=== PATIENT | female | born 1940 | race Caucasian/White ===

== ENCOUNTER 2018-05-10 10:04 | Emergency (ER) | payer MEDICARE, OTHER ==
[~2018-05-10 10:04] MED LIST: AUD IH; CHOL100040 PO; CYAN50LO PO; ESOM40CA PO; FLUTICA; FOLI1TAB82 PO; LEVAHFA IH; LEVO100T12 PO; LEVO150T11 PO; MONT10TA21 PO; PRAV20TA4 PO; TELM1TAB2 PO
[2018-05-10] MEDS ORDERED: ORPHENADRINE CITRATE 30 MG/ML ML ONE (10:43)
== END 2018-05-10 11:38 | disposition home or self-care (01) ==
LOC: EDH 10:04
DX: M47.892 Other spondylosis, cervical region (principal); M62.838 Other muscle spasm; E11.9 Type 2 diabetes mellitus without complications; I10 Essential (primary) hypertension; J44.9 Chronic obstructive pulmonary disease, unspecified; Z90.710 Acquired absence of both cervix and uterus; Z98.890 Other specified postprocedural states
CPT/HCPCS: 72040; 96372; 99284; J2360

== ENCOUNTER 2018-09-03 09:23 | Inpatient (IN) | payer MEDICARE, OTHER ==
[2018-09-03 09:43] LABS: BASOPHILS % (AUTO) 0.5 % (0.0-5.0); EOSINOPHILS % (AUTO) 2.8 % (0.0-8.0); LYMPHOCYTES % (AUTO) 20.8 % (21.0-51.0); MEAN CORPUSCULAR HEMOGLOBIN 30.7 pg (27.0-33.0); MEAN CORPUSCULAR HGB CONC 34.3 g/dL (32.0-36.0); MEAN CORPUSCULAR VOLUME 89.6 fL (79-99); NEUTROPHILS % (AUTO) 65.9 % (40.0-77.0); NUCLEATED RED BLOOD CELLS 0.1 % (0.0-0.19); PLATELET COUNT (AUTO) 217 K/uL (130-400); RED BLOOD CELL COUNT(AUTO) 3.13 MIL/uL (4.00-5.50); RED CELL DISTRIBUTION WIDTH 13.3 % (11.0-15.5); WHITE BLOOD COUNT (AUTO) 6.6 K/uL (4.8-10.8)
[2018-09-03 09:48] LABS: CREATININE 1.8 mg/dL (0.5-1.5); POTASSIUM 4.3 mmol/L (3.5-5.1)
[2018-09-03] MEDS ORDERED: ASPIRIN 325 MG TABLET ONE (09:53)
[2018-09-03 09:54] LABS: INR 1.02 (0.85-1.15); PARTIAL THROMBOPLASTIN TIME 28.2 SEC (26.3-35.5); PROTHROMBIN TIME 10.7 SEC (9.6-11.6)
[2018-09-03] MEDS ORDERED: NITROGLYCERIN 1GM/1 INCH PACKET TD ONE (09:54)
[2018-09-03 09:58] LABS: ALBUMIN 3.8 g/dL (3.5-5.0); BILIRUBIN,TOTAL 0.6 mg/dL (0.2-1.0); TOTAL PROTEIN, SERUM 7.7 g/dL (6.0-8.3)
[2018-09-03] MEDS ORDERED: ACETAMINOPHEN 325 MG TAB PO PRN (12:00)
[2018-09-03] MEDS ORDERED: ONDANSETRON HCL 4 MG/2 ML VIAL IVP PRN (12:00)
[2018-09-03] MEDS ORDERED: LEVO50TA11 PO (13:29)
[2018-09-03] MEDS ORDERED: LEVO50 PO (13:29)
[2018-09-03] MEDS ORDERED: TELM1TAB34 PO (13:29)
[2018-09-03] MEDS ORDERED: CLOP75TA32 PO (13:29)
[2018-09-03] MEDS ORDERED: CALC600T12 PO (13:29)
[2018-09-03] MEDS ORDERED: [UNRECOGNIZED DRUG - OTHER] PO (13:29)
[2018-09-03 15:09] LABS: APPEARANCE,URINE Clear (CLEAR); BILIRUBIN,URINE Negative (NEGATIVE); COLOR,URINE Yellow (YELLOW); GLUCOSE, URINE (UA) Negative (NEGATIVE); KETONES,URINE Negative (NEGATIVE); LEUKOCYTE ESTERASE ,URINE Moderate (NEGATIVE); NITRATE,URINE Negative (NEGATIVE); OCCULT BLOOD,URINE Negative (NEGATIVE); PROTEIN,URINE Negative (NEGATIVE); UROBILINOGEN,URINE 0.2 mg/dL (0.2-1.0)
[2018-09-03 15:16] LABS: BACTERIA,URINE Rare /HPF (None Seen); RBC,URINE 0-1 /HPF (0-1); SQUAMOUS EPITHELIAL CELL,UR Few /HPF (0-2)
[2018-09-03] MEDS: INSULIN R PO SS1 SQ SCH ×2 (16:30→21:00)
[2018-09-03 19:36] LABS: CREATINE KINASE, TOTAL 238 U/L (21-232); MYOGLOBIN 206 ng/mL (10-92); TROPONIN I < 0.04 ng/mL (0.00-0.06)
--- NOTE | 2018-09-03 20:45 | NUR ---
Patient arrived on unit. Alert and oriented x4. Nitro paste applied in ED. Denies headache or dizziness. Ambulated independently. No SOB with exertion or at rest. Patient denies chest pain. Patient resting comfortably. Family at bedside. Oriented to environment. Call light with in reach. Home Medications updated and ready for reconciliation.
[2018-09-03 21:30] VITALS: BP 148/88
[2018-09-03 23:53] VITALS: BP 129/51
[2018-09-04 04:16] LABS: CARBON DIOXIDE 27 mmol/L (21-32); CHLORIDE 104 mmol/L (101-111); CHOLESTEROL 149 mg/dL (<200); CREATINE KINASE, TOTAL 201 U/L (21-232); CREATININE 1.6 mg/dL (0.5-1.5); GLOMERULAR FILTR. RATE CALC 33 mL/min (>60); GLUCOSE,RANDOM 93 mg/dL (70-105); HDL CHOLESTEROL 44 mg/dL (35-85); HEMOGLOBIN A1C 6.1 % (4.0-6.0); LDL DIRECT 94 mg/dL (0-99); MYOGLOBIN 167 ng/mL (10-92); POTASSIUM 3.9 mmol/L (3.5-5.1); SODIUM SERUM 141 mmol/L (136-145); TRIGLYCERIDES 113 mg/dL (30-200); TROPONIN I < 0.04 ng/mL (0.00-0.06); UREA NITROGEN, BLOOD 30 mg/dL (7-18)
[2018-09-04] MEDS ORDERED: CARV25TA PO (04:24)
[2018-09-04 04:30] LABS: HEMATOCRIT 28.1 % (36-48); MEAN CORPUSCULAR HEMOGLOBIN 30.1 pg (27.0-33.0); MEAN CORPUSCULAR HGB CONC 33.7 g/dL (32.0-36.0); MEAN CORPUSCULAR VOLUME 89.2 fL (79-99); NUCLEATED RED BLOOD CELLS 0.1 % (0.0-0.19); PLATELET COUNT (AUTO) 187 K/uL (130-400); RED BLOOD CELL COUNT(AUTO) 3.15 MIL/uL (4.00-5.50); RED CELL DISTRIBUTION WIDTH 13.6 % (11.0-15.5); WHITE BLOOD COUNT (AUTO) 5.4 K/uL (4.8-10.8)
[2018-09-04 04:50] VITALS: BP 123/50
[2018-09-04] MEDS: INSULIN R PO SS1 SQ SCH ×4 (06:55→21:00)
[2018-09-04 07:00] VITALS: BP 136/57
[2018-09-04] MEDS ORDERED: ASPIRIN 81MG TAB.CHEW PO SCH (09:00)
[2018-09-04] MEDS ORDERED: PANTOPRAZOLE SODIUM 40 MG TABLET.DR PO SCH ×2 (09:00→21:00)
[2018-09-04] MEDS ORDERED: COMPOUND IV MISC 1 EACH IVSOLN MISC PRN (09:30)
[2018-09-04] MEDS ORDERED: LEVOTHYROXINE 50 MCG TABLET PO SCH (09:30)
[2018-09-04] MEDS ORDERED: ALBUTEROL SULFATE 0.083% 2.5 MG/3 ML INH IH PRN (09:45)
[2018-09-04] MEDS ORDERED: IRON SUCROSE COMPLEX 100 MG in SODIUM CHLORIDE 0.9% 50 ML IV SCH (09:45)
--- NOTE | 2018-09-04 10:37 | NUR ---
STATUS PT LAYING IN BED, RESTING. FAMILY @ BEDSIDE. A/O X 3. NO SOB. NO DISTRESS NOTED. DENIES CHEST PAIN OR DISCOMFORT. DENIES PALPITATIONS. TELE: SR 60s. DENIES N/V AND/OR DIARRHEA. NPO STATUS REINFORCED. PT PENDING TO HAVE FILIPE SCAN TO BE DONE TODAY. INSTRUCTED TO CALL FOR ASSISTANCE. CALL TIFFANIE W/IN REACH.
[2018-09-04 11:00] VITALS: BP 155/77
[2018-09-04] MEDS ORDERED: REGADENOSON 0.4 MG/5 ML PF SYG IVP SCH (11:15)
--- NOTE | 2018-09-04 13:50 | NUR ---
RITA PLAN PATIENT DOWN FOR PROCEDURE. CHRISTOPHER WILL FOLLOW UP FOR IA. Addendum: 09/04/18 at 1350 by FELISA CHOWDHURY RN CM Amended: Links added.
[2018-09-04 16:00] VITALS: BP 140/65
--- NOTE | 2018-09-04 16:43 | NUR ---
DC PLAN VISITED WITH PATIENT. PATIENT LIVES WITH SPOUSE. INDEPENDENT ABLE TO PERFORM ADL'S. PATIENT HAS NO SERVICES OR DME'S. FEELS SAFE TO RETURN HOME. Addendum: 09/04/18 at 1645 by FELISA CHOWDHURY RN CM Amended: Links added.
[2018-09-04 19:54] VITALS: BP 147/61
[2018-09-04] MEDS ORDERED: MONTELUKAST SODIUM 10 MG TAB PO SCH (21:00)
[2018-09-04] MEDS ORDERED: CARVEDILOL 25 MG TABLET PO SCH (21:00)
[2018-09-04] MEDS ORDERED: ATORVASTATIN CALCIUM 10 MG TABLET PO SCH (21:00)
[2018-09-04] MEDS ORDERED: CALCIUM CARBONATE 500 MG TABLET PO SCH (21:00)
[2018-09-04 23:35] VITALS: BP 114/48
[2018-09-05 04:04] VITALS: BP 131/74
[2018-09-05] MEDS: INSULIN R PO SS1 SQ SCH (05:31)
--- NOTE | 2018-09-05 07:40 | NUR ---
ASSESSMENT ENCOUNTERED PT A&OX3, CALM COOPERATIVE AND DOES NOT APPEAR TO BE IN ANY DISTRESS NOR ANY NEURO DEFICITS PRESENT. PT DENIES PAIN, SOB, NAUSEA. PT IS AMBULATORY, GAIT STEADY AND STRONG WITH STAND BY ASSIST. CALL LIGHT WITHIN REACH, FAMILY AT BEDSIDE.
[2018-09-05 07:41] VITALS: BP 120/62
[2018-09-05] MEDS ORDERED: CLOPIDOGREL BISULFATE 75 MG TAB PO SCH (09:00)
[2018-09-05] MEDS ORDERED: FOLIC ACID/VITAMIN B COMP W-C 1 MG CAPSULE PO SCH (09:00)
--- NOTE | 2018-09-05 09:00 | NUR ---
DR Najma MONTENEGRO AT BEDSIDE UPDATE GIVEN, ORDERS RECEIVED.
--- NOTE | 2018-09-05 10:00 | NUR ---
DISCHARGE INSTRUCTIONS GIVEN, PIV REMOVED AND INTACT, DISCHARGED HOME TO FAMILY VEHICLE VIA WHEELCHAIR.
== END 2018-09-05 09:56 | disposition home or self-care (01) | DRG 303 ==
LOC: EDH 09:23 → EDHIP 11:11 → 2AH 20:46
PROVIDERS: ADMIT Internal Medicine Nephrology; ATTEND Internal Medicine Nephrology
DX: I25.110 Atherosclerotic heart disease of native coronary artery with unstable angina pectoris (principal); N18.4 Chronic kidney disease, stage 4 (severe); I12.9 Hypertensive chronic kidney disease with stage 1 through stage 4 chronic kidney disease, or unspecified chronic kidney disease; E11.21 Type 2 diabetes mellitus with diabetic nephropathy; E11.22 Type 2 diabetes mellitus with diabetic chronic kidney disease; E78.5 Hyperlipidemia, unspecified; I99.9 Unspecified disorder of circulatory system; E78.00 Pure hypercholesterolemia, unspecified; J44.9 Chronic obstructive pulmonary disease, unspecified; Z90.710 Acquired absence of both cervix and uterus
CPT/HCPCS: 36415; 71045; 78452; 80048; 80053; 80061; 81001; 82550; 82948; 83036; 83874; 84484; 85025; 85027; 85610; 85730; 93005; 93017; 94664; 96374; 99291; A9500; G0378; J1756; J2785

== ENCOUNTER → 2018-12-26 | Outpatient (CLI) | payer MEDICARE, OTHER ==
[~2018-12-26] MED LIST changes: +CALC600T12 PO; +CARV25TA PO; +CLOP75TA32 PO; -FLUTICA; -LEVAHFA IH; -LEVO100T12 PO; -LEVO150T11 PO; +LEVO50 PO; -TELM1TAB2 PO; +TELM1TAB34 PO; +[UNRECOGNIZED DRUG - OTHER] PO
== END | disposition home or self-care (01) ==
LOC: RAH 11:50
PROVIDERS: ATTEND Internal Medicine Nephrology
DX: Z12.31 Encounter for screening mammogram for malignant neoplasm of breast (principal)
CPT/HCPCS: 77067

== ENCOUNTER 2019-10-19 10:30 | Emergency (ER) | payer MEDICARE, OTHER ==
[2019-10-19 11:01] LABS: APPEARANCE,URINE Cloudy (CLEAR); BILIRUBIN,URINE Negative (NEGATIVE); COLOR,URINE Yellow (YELLOW); GLUCOSE, URINE (UA) Negative (NEGATIVE); KETONES,URINE Negative (NEGATIVE); LEUKOCYTE ESTERASE ,URINE Large (NEGATIVE); NITRATE,URINE Negative (NEGATIVE); OCCULT BLOOD,URINE Negative (NEGATIVE); PROTEIN,URINE Negative (NEGATIVE); UROBILINOGEN,URINE 0.2 mg/dL (0.2-1.0)
[2019-10-19 11:22] LABS: BACTERIA,URINE Rare /HPF (None Seen); RBC,URINE 0-1 /HPF (0-1); SQUAMOUS EPITHELIAL CELL,UR Few /HPF (0-2)
[2019-10-19 11:23] LABS: BASOPHILS % (AUTO) 0.9 % (0.0-5.0); EOSINOPHILS % (AUTO) 2.5 % (0.0-8.0); HEMATOCRIT 28.2 % (36-48); MEAN CORPUSCULAR HEMOGLOBIN 30.2 pg (27.0-33.0); MEAN CORPUSCULAR HGB CONC 33.3 g/dL (32.0-36.0); MEAN CORPUSCULAR VOLUME 90.7 fL (79-99); MONOCYTES % (AUTO) 8.9 % (3.0-13.0); NEUTROPHILS % (AUTO) 62.2 % (40.0-77.0); PLATELET COUNT (AUTO) 238 K/uL (130-400); RED BLOOD CELL COUNT(AUTO) 3.11 MIL/uL (4.00-5.50); RED CELL DISTRIBUTION WIDTH 13.1 % (11.0-15.5); WHITE BLOOD COUNT (AUTO) 5.6 K/uL (4.8-10.8)
[2019-10-19] MEDS ORDERED: CEFTRIAXONE SODIUM 1 GM ONE (11:29)
[2019-10-19] MEDS ORDERED: SODIUM CHLORIDE 0.9% 1000ML 1,000 ML IV ONE (11:29)
[2019-10-19 11:30] LABS: CREATININE 1.9 mg/dL (0.5-1.5); POTASSIUM 4.5 mmol/L (3.5-5.1)
[2019-10-19 11:33] LABS: INR 0.98 (0.85-1.15); PARTIAL THROMBOPLASTIN TIME 27.1 SEC (26.3-35.5); PROTHROMBIN TIME 10.3 SEC (9.6-11.6)
[2019-10-19 11:35] LABS: ALBUMIN 3.7 g/dL (3.5-5.0); BILIRUBIN,TOTAL 0.5 mg/dL (0.2-1.0); TOTAL PROTEIN, SERUM 7.8 g/dL (6.0-8.3)
[2019-10-19 11:38] LABS: RAPID GROUP A STREP NEGATIVE (NEGATIVE)
== END 2019-10-19 14:06 | disposition home or self-care (01) ==
LOC: EDH 10:30
DX: N30.00 Acute cystitis without hematuria (principal); D64.9 Anemia, unspecified; J44.9 Chronic obstructive pulmonary disease, unspecified; E11.9 Type 2 diabetes mellitus without complications; I10 Essential (primary) hypertension; Z90.49 Acquired absence of other specified parts of digestive tract; Z90.710 Acquired absence of both cervix and uterus
CPT/HCPCS: 36415; 71045; 80053; 81001; 82550; 82948; 83880; 84484; 85025; 85610; 85730; 87088; 87804 ×2; 87880; 93005; 96374; 99285; J0696; J7030

== ENCOUNTER 2019-10-28 09:55 | Emergency (ER) | payer MEDICARE, OTHER ==
[2019-10-28 10:44] LABS: APPEARANCE,URINE Clear (CLEAR); BILIRUBIN,URINE Negative (NEGATIVE); COLOR,URINE Yellow (YELLOW); GLUCOSE, URINE (UA) Negative (NEGATIVE); KETONES,URINE Negative (NEGATIVE); LEUKOCYTE ESTERASE ,URINE Moderate (NEGATIVE); NITRATE,URINE Negative (NEGATIVE); OCCULT BLOOD,URINE Negative (NEGATIVE); PROTEIN,URINE Negative (NEGATIVE); UROBILINOGEN,URINE 0.2 mg/dL (0.2-1.0)
[2019-10-28 10:44] LABS: BASOPHILS % (AUTO) 1.1 % (0.0-5.0); EOSINOPHILS % (AUTO) 1.9 % (0.0-8.0); HEMATOCRIT 30.4 % (36-48); LYMPHOCYTES % (AUTO) 24.8 % (21.0-51.0); MEAN CORPUSCULAR HEMOGLOBIN 30.2 pg (27.0-33.0); MEAN CORPUSCULAR HGB CONC 32.9 g/dL (32.0-36.0); MEAN CORPUSCULAR VOLUME 91.8 fL (79-99); MONOCYTES % (AUTO) 7.9 % (3.0-13.0); NEUTROPHILS % (AUTO) 63.9 % (40.0-77.0); PLATELET COUNT (AUTO) 257 K/uL (130-400); RED BLOOD CELL COUNT(AUTO) 3.31 MIL/uL (4.00-5.50); RED CELL DISTRIBUTION WIDTH 13.1 % (11.0-15.5); WHITE BLOOD COUNT (AUTO) 7.2 K/uL (4.8-10.8)
[2019-10-28 10:51] LABS: CREATININE 1.9 mg/dL (0.5-1.5); POTASSIUM 4.5 mmol/L (3.5-5.1)
[2019-10-28 10:57] LABS: BILIRUBIN,TOTAL 0.4 mg/dL (0.2-1.0); TOTAL PROTEIN, SERUM 8.2 g/dL (6.0-8.3)
[2019-10-28 11:09] LABS: BACTERIA,URINE Few /HPF (None Seen); RBC,URINE None Seen /HPF (0-1); RENAL EPITHELIAL CELLS,URINE Few /HPF (None Seen); SQUAMOUS EPITHELIAL CELL,UR Few /HPF (0-2)
== END 2019-10-28 12:06 | disposition home or self-care (01) ==
LOC: EDH 09:55
DX: E87.1 Hypo-osmolality and hyponatremia (principal); N39.0 Urinary tract infection, site not specified; I10 Essential (primary) hypertension; J44.9 Chronic obstructive pulmonary disease, unspecified; E11.9 Type 2 diabetes mellitus without complications; Z90.49 Acquired absence of other specified parts of digestive tract; Z90.710 Acquired absence of both cervix and uterus
CPT/HCPCS: 36415; 80053; 81001; 82550; 84484; 85025; 87088; 93005

== ENCOUNTER 2019-12-02 11:25 | Emergency (ER) | payer MEDICARE, OTHER ==
[2019-12-02] MEDS ORDERED: ONDANSETRON HCL 4 MG/2 ML VIAL ONE (12:18)
[2019-12-02 12:19] LABS: EOSINOPHILS % (AUTO) 1.8 % (0.0-8.0); HEMATOCRIT 25.9 % (36-48); MEAN CORPUSCULAR HEMOGLOBIN 31.3 pg (27.0-33.0); MEAN CORPUSCULAR HGB CONC 34.4 g/dL (32.0-36.0); MEAN CORPUSCULAR VOLUME 91.2 fL (79-99); MONOCYTES % (AUTO) 12.7 % (3.0-13.0); PLATELET COUNT (AUTO) 213 K/uL (130-400); RED BLOOD CELL COUNT(AUTO) 2.84 MIL/uL (4.00-5.50); RED CELL DISTRIBUTION WIDTH 12.7 % (11.0-15.5)
[2019-12-02 12:32] LABS: APPEARANCE,URINE CLOUDY (CLEAR); BILIRUBIN,URINE NEGATIVE (NEGATIVE); COLOR,URINE YELLOW (YELLOW); GLUCOSE, URINE (UA) NEGATIVE (NEGATIVE); KETONES,URINE NEGATIVE (NEGATIVE); LEUKOCYTE ESTERASE ,URINE LARGE (NEGATIVE); NITRATE,URINE NEGATIVE (NEGATIVE); OCCULT BLOOD,URINE NEGATIVE (NEGATIVE); PROTEIN,URINE NEGATIVE (NEGATIVE); UROBILINOGEN,URINE 0.2 mg/dL (0.2-1.0)
[2019-12-02 12:38] LABS: POTASSIUM 4.3 mmol/L (3.5-5.1)
[2019-12-02 12:41] LABS: ALBUMIN 3.6 g/dL (3.5-5.0); BILIRUBIN,TOTAL 0.5 mg/dL (0.2-1.0); TOTAL PROTEIN, SERUM 6.9 g/dL (6.0-8.3)
[2019-12-02 12:47] LABS: BACTERIA,URINE Many /HPF (None Seen); RBC,URINE 0-1 /HPF (0-1); SQUAMOUS EPITHELIAL CELL,UR Many /HPF (0-2); WBC,URINE 51-100 /HPF (0-1)
[2019-12-02] MEDS ORDERED: CEFTRIAXONE SODIUM 1 GM ONE (14:30)
== END 2019-12-02 19:32 | disposition home or self-care (01) ==
LOC: EDH 11:25
DX: N39.0 Urinary tract infection, site not specified (principal); M62.81 Muscle weakness (generalized); J44.9 Chronic obstructive pulmonary disease, unspecified; E11.9 Type 2 diabetes mellitus without complications; I10 Essential (primary) hypertension; Z87.891 Personal history of nicotine dependence
CPT/HCPCS: 36415; 71045; 78582; 80053; 81001; 84484; 85025; 85378; 87088; 93005; 96374; 96375; 99285; A9540; A9558; J0696; J2405

== ENCOUNTER 2020-10-26 15:53 | Emergency (ER) | payer MEDICARE, OTHER ==
[~2020-10-26 15:53] MED LIST changes: -CALC600T12 PO; +CALC600T15 PO; -TELM1TAB34 PO; +TELM1TAB42 PO
[2020-10-26 16:26] LABS: EOSINOPHILS % (AUTO) 2.3 % (0.0-8.0); HEMATOCRIT 30.5 % (36-48); LYMPHOCYTES % (AUTO) 18.4 % (21.0-51.0); MEAN CORPUSCULAR HEMOGLOBIN 29.2 pg (27.0-33.0); MEAN CORPUSCULAR HGB CONC 32.1 g/dL (32.0-36.0); MEAN CORPUSCULAR VOLUME 90.8 fL (79-99); MONOCYTES % (AUTO) 9.1 % (3.0-13.0); NEUTROPHILS % (AUTO) 68.8 % (40.0-77.0); PLATELET COUNT (AUTO) 273 K/uL (130-400); RED BLOOD CELL COUNT(AUTO) 3.36 MIL/uL (4.00-5.50); RED CELL DISTRIBUTION WIDTH 13.3 % (11.0-15.5); WHITE BLOOD COUNT (AUTO) 6.9 K/uL (4.8-10.8)
[2020-10-26 16:29] LABS: APPEARANCE,URINE Clear (CLEAR); BILIRUBIN,URINE Negative (NEGATIVE); COLOR,URINE Yellow (YELLOW); GLUCOSE, URINE (UA) Negative (NEGATIVE); KETONES,URINE Trace mg/dL (NEGATIVE); LEUKOCYTE ESTERASE ,URINE Trace (NEGATIVE); NITRATE,URINE Negative (NEGATIVE); OCCULT BLOOD,URINE Negative (NEGATIVE); PH,URINE 5.5 (5.0-8.0); PROTEIN,URINE Negative (NEGATIVE); UROBILINOGEN,URINE 0.2 mg/dL (0.2-1.0)
[2020-10-26] MEDS ORDERED: ONDANSETRON HCL 4 MG/2 ML VIAL ONE (16:38)
[2020-10-26] MEDS ORDERED: MORPHINE SULFATE 4 MG/1ML SYG ONE (16:38)
[2020-10-26] MEDS ORDERED: SODIUM CHLORIDE 0.9% 1000ML 1,000 ML IV ONE (16:39)
[2020-10-26 16:42] LABS: BACTERIA,URINE Few /HPF (None Seen); MUCUS,URINE Few LPF (None Seen); RBC,URINE 0-1 /HPF (0-1); SQUAMOUS EPITHELIAL CELL,UR Few /HPF (0-2)
[2020-10-26 16:43] LABS: ALBUMIN 3.8 g/dL (3.5-5.0); BILIRUBIN,TOTAL 0.5 mg/dL (0.2-1.0); CREATININE 1.8 mg/dL (0.5-1.5); POTASSIUM 4.4 mmol/L (3.5-5.1); TOTAL PROTEIN, SERUM 7.9 g/dL (6.0-8.3)
== END 2020-10-26 18:10 | disposition home or self-care (01) ==
LOC: EDH 15:53
DX: M62.830 Muscle spasm of back (principal); R53.1 Weakness; Z20.822 Contact with and (suspected) exposure to COVID-19; E11.9 Type 2 diabetes mellitus without complications; E86.0 Dehydration; I10 Essential (primary) hypertension; J44.9 Chronic obstructive pulmonary disease, unspecified; Z90.710 Acquired absence of both cervix and uterus; Z90.49 Acquired absence of other specified parts of digestive tract
CPT/HCPCS: 36415; 71046; 80053; 81001; 85025; 87426; 96361; 96374; 96375; 99284; J2270; J2405; J7030

== ENCOUNTER 2022-12-21 07:59 | Day surgery (SDC) | payer MEDICARE, OTHER ==
[2022-12-17 12:25] LABS: BASOPHILS % (AUTO) 0.9 % (0.0-5.0); EOSINOPHILS % (AUTO) 3.1 % (0.0-8.0); HEMATOCRIT 34.1 % (36-48); LYMPHOCYTES % (AUTO) 15.2 % (21.0-51.0); MEAN CORPUSCULAR HEMOGLOBIN 30.8 pg (27.0-33.0); MEAN CORPUSCULAR HGB CONC 33.7 g/dL (32.0-36.0); MEAN CORPUSCULAR VOLUME 91.4 fL (79-99); MONOCYTES % (AUTO) 10.1 % (3.0-13.0); NEUTROPHILS % (AUTO) 70.3 % (40.0-77.0); PLATELET COUNT (AUTO) 215 K/uL (130-400); RED BLOOD CELL COUNT(AUTO) 3.73 MIL/uL (4.00-5.50); RED CELL DISTRIBUTION WIDTH 12.8 % (11.0-15.5); WHITE BLOOD COUNT (AUTO) 7.4 K/uL (4.8-10.8)
[2022-12-17 12:43] VITALS: BP 109/53
[2022-12-17 12:43] LABS: ALBUMIN 3.5 g/dL (3.5-5.0); BILIRUBIN,DIRECT 0.1 mg/dL (0.0-0.3); POTASSIUM 5.2 mmol/L (3.5-5.1); TOTAL PROTEIN, SERUM 7.4 g/dL (6.0-8.3)
[2022-12-21] VITALS (17 sets, daily range): BP systolic 136–178; BP diastolic 68–99
[~2022-12-21] VITALS: Ht 167.6 cm; Wt 105.1 kg
[~2022-12-21 07:59] MED LIST changes: -AUD IH; -CALC600T15 PO; -CHOL100040 PO; -CYAN50LO PO; +FLUT1AER IH; +LEVO100C4 PO; -LEVO50 PO; +MONT-46 PO; -MONT10TA21 PO; -[UNRECOGNIZED DRUG - OTHER] PO; +calcium PO
[2022-12-21] MEDS ORDERED: CEFAZOLIN SODIUM 1 GM VIAL ONE (09:05)
[2022-12-21] MEDS ORDERED: LACTATED RINGERS 1000ML 1,000 ML IV ONE (09:05)
[2022-12-21 09:26] LABS: CREATININE 1.8 mg/dL (0.5-1.5); POTASSIUM 5.1 mmol/L (3.5-5.1)
[2022-12-21] MEDS ORDERED: CYAN1TAB44 PO (09:42)
[2022-12-21] MEDS ORDERED: GLYCOPYRROLATE 1 MG/5 ML SYRINGE ONE (11:20)
[2022-12-21] MEDS ORDERED: SUCCINYLCHOLINE CHLORIDE 20 MG/ML 10 ML VIAL ONE (11:20)
[2022-12-21] MEDS ORDERED: ONDANSETRON 4MG INJ ONE (11:20)
[2022-12-21] MEDS ORDERED: LIDOCAINE PF 100MG/5ML (2%) SYRINGE 5ML ONE (11:20)
[2022-12-21] MEDS ORDERED: MIDAZOLAM HCL 1 MG/ML 2ML VIAL ONE (11:20)
[2022-12-21] MEDS ORDERED: DEXAMETHASONE SOD PHOSPHATE 10MG/ML 1ML VIAL ONE (11:20)
[2022-12-21] MEDS ORDERED: ROCURONIUM 10MG/1ML SYR 10 MG/ML ML ONE (11:21)
[2022-12-21] MEDS ORDERED: PROPOFOL 10 MG/ML 20ML VIAL IV ONE (11:21)
[2022-12-21] MEDS ORDERED: FENTANYL CITRATE PF 50 MCG/1 ML 2ML VIAL ONE (11:21)
[2022-12-21] MEDS ORDERED: NEOSTIGMINE 5MG/5ML SYR IV ONE (11:21)
[2022-12-21] MEDS ORDERED: BUPIVACAINE/PF 0.5% 30ML VIAL ONE (11:25)
[2022-12-21] MEDS ORDERED: KETOROLAC 30MG VIAL (30MG/ML) ONE (11:53)
[2022-12-21] MEDS ORDERED: LIDOCAINE HCL-MPF 2% 10ML AMP IJ ONE (11:54)
[2022-12-21] MEDS ORDERED: SUGAMMADEX SODIUM 200 MG/2 ML VIAL IV ONE (11:55)
[2022-12-21] MEDS ORDERED: TRAM50TA4 PO (12:20)
== END 2022-12-21 13:33 | disposition home or self-care (01) ==
LOC: DAH 07:59
PROVIDERS: ATTEND Surgery
DX: L72.3 Sebaceous cyst (principal); Z20.822 Contact with and (suspected) exposure to COVID-19; I10 Essential (primary) hypertension; I25.10 Atherosclerotic heart disease of native coronary artery without angina pectoris; K21.9 Gastro-esophageal reflux disease without esophagitis; E03.9 Hypothyroidism, unspecified; J44.9 Chronic obstructive pulmonary disease, unspecified; E66.9 Obesity, unspecified; Z86.73 Personal history of transient ischemic attack (TIA), and cerebral infarction without residual deficits; Z91.040 Latex allergy status; Z88.0 Allergy status to penicillin; Z68.37 Body mass index [BMI] 37.0-37.9, adult
CPT/HCPCS: 80076; 80048 ×2; 85025; 87426; 36415 ×2; 93005; 11422; 88304; A6260; A4663; A4606; J7120; J3010; J0690; J3490 ×3; J1100; J2710; J0330; J2001; J2250; J2704; J2405; J1885; A4215; A4223; A4222; A4221; A4600

== ENCOUNTER 2023-02-27 10:19 | Emergency (ER) | payer MEDICARE, OTHER ==
[~2023-02-27] VITALS: Ht 170.2 cm; Wt 104.3 kg
[~2023-02-27 10:19] MED LIST changes: +CYAN1TAB44 PO
[2023-02-27 11:12] LABS: BASOPHILS % (AUTO) 1.2 % (0.0-5.0); EOSINOPHILS % (AUTO) 2.5 % (0.0-8.0); HEMATOCRIT 31.3 % (36-48); LYMPHOCYTES % (AUTO) 21.2 % (21.0-51.0); MEAN CORPUSCULAR HEMOGLOBIN 31.1 pg (27.0-33.0); MEAN CORPUSCULAR HGB CONC 33.9 g/dL (32.0-36.0); MEAN CORPUSCULAR VOLUME 91.8 fL (79-99); MONOCYTES % (AUTO) 7.4 % (3.0-13.0); NEUTROPHILS % (AUTO) 67.4 % (40.0-77.0); PLATELET COUNT (AUTO) 234 K/uL (130-400); RED BLOOD CELL COUNT(AUTO) 3.41 MIL/uL (4.00-5.50); RED CELL DISTRIBUTION WIDTH 13.3 % (11.0-15.5); WHITE BLOOD COUNT (AUTO) 7.5 K/uL (4.8-10.8)
[2023-02-27 11:21] LABS: POTASSIUM 4.4 mmol/L (3.5-5.1)
[2023-02-27 11:22] LABS: CREATININE 1.9 mg/dL (0.5-1.5)
[2023-02-27 11:26] LABS: ALBUMIN 3.6 g/dL (3.5-5.0); TOTAL PROTEIN, SERUM 7.6 g/dL (6.0-8.3)
[2023-02-27 13:22] LABS: BASOPHILS % (AUTO) 1.2 % (0.0-5.0); EOSINOPHILS % (AUTO) 2.5 % (0.0-8.0); HEMATOCRIT 31.8 % (36-48); LYMPHOCYTES % (AUTO) 23.2 % (21.0-51.0); MEAN CORPUSCULAR HEMOGLOBIN 31.2 pg (27.0-33.0); MEAN CORPUSCULAR VOLUME 91.9 fL (79-99); MONOCYTES % (AUTO) 6.3 % (3.0-13.0); NEUTROPHILS % (AUTO) 66.4 % (40.0-77.0); PLATELET COUNT (AUTO) 221 K/uL (130-400); RED BLOOD CELL COUNT(AUTO) 3.46 MIL/uL (4.00-5.50); RED CELL DISTRIBUTION WIDTH 13.4 % (11.0-15.5); WHITE BLOOD COUNT (AUTO) 7.6 K/uL (4.8-10.8)
[2023-02-27 14:42] VITALS: BP 154/70
[2023-03-02] MEDS ORDERED: ESCI-8 PO (12:18)
[2023-03-02] MEDS ORDERED: FERR-72 PO (12:18)
[2023-03-02] MEDS ORDERED: CHOL200013 PO (12:18)
[2023-03-02] MEDS ORDERED: TELM1TAB32 PO (12:18)
[2023-03-02] MEDS ORDERED: CELE-84 PO (12:18)
== END 2023-02-27 15:01 | disposition home or self-care (01) ==
LOC: EDH 10:19
DX: K62.5 Hemorrhage of anus and rectum (principal); D64.9 Anemia, unspecified; E87.1 Hypo-osmolality and hyponatremia; N28.9 Disorder of kidney and ureter, unspecified; I10 Essential (primary) hypertension; E66.9 Obesity, unspecified; Z68.36 Body mass index [BMI] 36.0-36.9, adult; E78.00 Pure hypercholesterolemia, unspecified; Z79.899 Other long term (current) drug therapy; Z87.440 Personal history of urinary (tract) infections; Z90.49 Acquired absence of other specified parts of digestive tract; Z90.710 Acquired absence of both cervix and uterus; Z98.890 Other specified postprocedural states; Z91.040 Latex allergy status
CPT/HCPCS: 36415; 80053; 82270; 85025

== ENCOUNTER 2023-03-06 16:25 | Emergency (ER) | payer MEDICARE, OTHER ==
[~2023-03-06] VITALS: Ht 170.2 cm; Wt 104.3 kg
[~2023-03-06 16:25] MED LIST changes: +CELE-84 PO; +CHOL200013 PO; -CLOP75TA32 PO; -CYAN1TAB44 PO; +ESCI-8 PO; -ESOM40CA PO; +FERR-72 PO; -FLUT1AER IH; -FOLI1TAB82 PO; -PRAV20TA4 PO; +TELM1TAB32 PO; -TELM1TAB42 PO; -calcium PO
[2023-03-06 17:06] LABS: BASOPHILS % (AUTO) 0.9 % (0.0-5.0); HEMATOCRIT 29.6 % (36-48); LYMPHOCYTES % (AUTO) 22.8 % (21.0-51.0); MEAN CORPUSCULAR HEMOGLOBIN 31.3 pg (27.0-33.0); MEAN CORPUSCULAR HGB CONC 34.1 g/dL (32.0-36.0); MEAN CORPUSCULAR VOLUME 91.6 fL (79-99); NEUTROPHILS % (AUTO) 62.9 % (40.0-77.0); PLATELET COUNT (AUTO) 222 K/uL (130-400); RED BLOOD CELL COUNT(AUTO) 3.23 MIL/uL (4.00-5.50); RED CELL DISTRIBUTION WIDTH 13.2 % (11.0-15.5); WHITE BLOOD COUNT (AUTO) 9.3 K/uL (4.8-10.8)
[2023-03-06 17:14] LABS: POTASSIUM 4.5 mmol/L (3.5-5.1)
[2023-03-06 17:19] LABS: ALBUMIN 3.5 g/dL (3.5-5.0); TOTAL PROTEIN, SERUM 7.4 g/dL (6.0-8.3)
[2023-03-06 18:14] LABS: APPEARANCE,URINE CLOUDY (CLEAR); BILIRUBIN,URINE NEGATIVE (NEGATIVE); COLOR,URINE LIGHT-YELLOW (YELLOW); GLUCOSE, URINE (UA) NEGATIVE (NEGATIVE); KETONES,URINE NEGATIVE (NEGATIVE); LEUKOCYTE ESTERASE ,URINE 500 Leu/uL (NEGATIVE); NITRATE,URINE NEGATIVE (NEGATIVE); OCCULT BLOOD,URINE NEGATIVE (NEGATIVE); PROTEIN,URINE NEGATIVE (NEGATIVE); UROBILINOGEN,URINE 0.2 mg/dL (0.2-1.0)
[2023-03-06 18:21] LABS: BACTERIA,URINE RARE /HPF (None Seen); MUCUS,URINE RARE LPF (None Seen); SQUAMOUS EPITHELIAL CELL,UR FEW /HPF (0-2); WBC,URINE 51-100 /HPF (0-1)
[2023-03-06 19:40] VITALS: BP 136/65
== END 2023-03-06 20:01 | disposition home or self-care (01) ==
LOC: EDH 16:25
DX: K92.2 Gastrointestinal hemorrhage, unspecified (principal); C17.1 Malignant neoplasm of jejunum; E78.00 Pure hypercholesterolemia, unspecified; I10 Essential (primary) hypertension; E66.9 Obesity, unspecified; Z79.02 Long term (current) use of antithrombotics/antiplatelets; Z79.51 Long term (current) use of inhaled steroids; Z79.899 Other long term (current) drug therapy; Z90.49 Acquired absence of other specified parts of digestive tract; Z90.710 Acquired absence of both cervix and uterus
CPT/HCPCS: 36415; 71045; 80053; 81001; 84484; 85025; 87077; 87088; 87186; 93005

== ENCOUNTER 2023-07-22 13:29 | Emergency (ER) | payer MEDICARE, OTHER ==
[~2023-07-22] VITALS: Ht 170.2 cm; Wt 106.6 kg
[~2023-07-22 13:29] MED LIST changes: +CELE-125 PO; -CELE-84 PO
[2023-07-22 13:33] VITALS: BP 164/70; PULSE 66; RESP 16; O2SAT 97
== END 2023-07-22 18:12 | disposition left against medical advice (07) ==
LOC: EDH 13:29
DX: R05.9 Cough, unspecified (principal); E78.00 Pure hypercholesterolemia, unspecified; I10 Essential (primary) hypertension; E66.9 Obesity, unspecified; Z79.899 Other long term (current) drug therapy; Z90.49 Acquired absence of other specified parts of digestive tract; Z68.36 Body mass index [BMI] 36.0-36.9, adult
CPT/HCPCS: 71045; 93005

== ENCOUNTER 2023-07-25 11:48 | Emergency (ER) | payer MEDICARE, OTHER ==
[~2023-07-25] VITALS: Ht 170.2 cm; Wt 106.6 kg
[2023-07-25 12:29] LABS: RAPID GROUP A STREP negative (NEGATIVE)
[2023-07-25 12:37] LABS: SARS-CoV-2, RNA, NAAT NEGATIVE SARS CoV-2 (NEGATIVE)
[2023-07-25 12:38] LABS: INFLUENZA TYPE A Negative For Type A (NEGATIVE); INFLUENZA TYPE B Negative For Type B (NEGATIVE)
[2023-07-25] MEDS ORDERED: BENZ200C53 PO (12:52)
[2023-07-25] MEDS ORDERED: LORA10TA7 PO (12:52)
[2023-07-25 13:34] VITALS: BP 139/64; PULSE 62; RESP 16; O2SAT 97
== END 2023-07-25 13:41 | disposition home or self-care (01) ==
LOC: EDH 11:48
DX: J06.9 Acute upper respiratory infection, unspecified (principal); R05.3 Chronic cough; I10 Essential (primary) hypertension; E78.00 Pure hypercholesterolemia, unspecified; Z20.822 Contact with and (suspected) exposure to COVID-19; Z79.899 Other long term (current) drug therapy; Z98.890 Other specified postprocedural states; Z90.49 Acquired absence of other specified parts of digestive tract; Z90.710 Acquired absence of both cervix and uterus; Z88.8 Allergy status to other drugs, medicaments and biological substances
CPT/HCPCS: 99285; 71045; 87635; 87880; 87804 ×2; 93005; C9803

== ENCOUNTER 2023-07-26 14:14 | Emergency (ER) | payer MEDICARE, OTHER ==
[~2023-07-26] VITALS: Ht 170.2 cm; Wt 106.6 kg
[~2023-07-26 14:14] MED LIST changes: +BENZ200C53 PO; +LORA10TA7 PO
[2023-07-26 15:12] VITALS: BP 131/63; PULSE 71; RESP 22
== END 2023-07-26 18:24 | disposition left against medical advice (07) ==
LOC: EDH 14:14
DX: R05.9 Cough, unspecified (principal); Z53.21 Procedure and treatment not carried out due to patient leaving prior to being seen by health care provider
CPT/HCPCS: 71046; 99281

== ENCOUNTER 2023-09-02 12:54 | Emergency (ER) | payer MEDICARE, OTHER ==
[~2023-09-02] VITALS: Ht 170.2 cm; Wt 100.2 kg
[~2023-09-02 12:54] MED LIST changes: -BENZ200C53 PO; +CALC-1125 PO; -CELE-125 PO; +CHOL100046 PO; -CHOL200013 PO; +CLOP75TA32 PO; +CYAN-35 PO; +DIPY25TA31 PO; -ESCI-8 PO; +ESOM40CA54 PO; -FERR-72 PO; +FOLI1TAB82 PO; -LORA10TA7 PO; +PRAV20TA4 PO; -TELM1TAB32 PO; +TELM1TAB42 PO
[2023-09-02 17:15] VITALS: BP 136/78; PULSE 78; RESP 18; O2SAT 99
[2023-09-02] MEDS ORDERED: METH-662 PO (19:11)
[2023-09-02] MEDS ORDERED: IBUP-2070 PO (19:11)
== END 2023-09-02 19:25 | disposition home or self-care (01) ==
LOC: EDH 12:54
DX: Z04.1 Encounter for examination and observation following transport accident (principal); I10 Essential (primary) hypertension; E78.00 Pure hypercholesterolemia, unspecified; E03.9 Hypothyroidism, unspecified; K21.9 Gastro-esophageal reflux disease without esophagitis; J44.9 Chronic obstructive pulmonary disease, unspecified; Z79.899 Other long term (current) drug therapy; Z90.49 Acquired absence of other specified parts of digestive tract; Z90.710 Acquired absence of both cervix and uterus; Z98.890 Other specified postprocedural states; Z88.8 Allergy status to other drugs, medicaments and biological substances
CPT/HCPCS: 70450; 71045; 71250; 72125; 93005

== ENCOUNTER 2024-08-05 09:49 | Emergency (ER) | payer MEDICARE, OTHER ==
[~2024-08-05] VITALS: Ht 170.2 cm; Wt 99.8 kg
[~2024-08-05 09:49] MED LIST changes: -CARV25TA PO; -DIPY25TA31 PO; +DONE10TA43 PO; -ESOM40CA54 PO; +LACT10SO9 PO; -LEVO100C4 PO; +LEVO100T4 PO
--- NOTE | 2024-08-05 10:09 | EKG ---
[facility] Test Date: 2024-08-05 Test Time: 10:07:53 Pat Name: JACE READ Department: ED Room: Gender: F Travel Assistant: [id number] : [id number] Requested By: TAMARA LICEA Order Number: [id number] Reading MD: Shaheen Landrum Measurements Intervals [place] Rate: 66 P: 68 [place]: 189 QRS: -18 QRSD: 85 T: 47 QT: 398 QTc: 418 Interpretive Statements Sinus rhythm Electronically Signed On 08-06-2024 14:09:40 TAXONOMIST by Shaheen Landrum Please click the below link to view image of tracing.
--- NOTE | 2024-08-05 10:19 | ERN ---
ED Note History of Present Illness Stated Complaint: SORE THROAT , N/V, HEADACHE, ABD PAIN Chief Complaint: Headache Time Seen by MD: 10:12 Dictation: Patient is a 84-year-old female with past medical history of hypertension, hypercholesterolemia, hypothyroidism, and dementia who presents to the ED for nausea, abdominal pain, and headache that started yesterday. She also states she had blood in her stool this morning. She feels weak and has a reduced appetite. She has had no vomiting episodes. She denies chest pain, dizziness, or shortness of breath. She denies having any fevers but feels cold. Allergies: Coded Allergies: latex (Unverified Allergy, Mild, ITCHING, 09/04/18) No Known Drug Allergies (Verified Allergy, Unknown, 01/25/14) Home Meds Active Scripts Pantoprazole Sodium (Pantoprazole Sodium) 40 Mg Tablet.dr, 1 TAB PO DAILY for 30 Days, #30 TAB 0 Refills Prov:CLAUDIA GONZALES MD 08/06/24 Levothyroxine Sodium (Synthroid 100 Mcg Tab) 100 Mcg Tablet, 100 MCG PO DAILY@0630 for 30 Days, #30 TAB Prov:ROSA ELENA VILLAFANA NP 08/02/24 Lactulose (Lactulose) 20 Gram/30 Ml Solution, 30 ML PO HSPRN PRN for CONSTIPATION, #200 ML 0 Refills Prov:SYLVAIN ORTEGA NP 07/29/24 Reported Medications Donepezil HCl (Donepezil HCl) 10 Mg Tablet, 1 TAB PO DAILY 07/31/24 Cholecalciferol (Vitamin D3) (Vitamin D3) 25 Mcg (1000 Unit) Capsule, 25 MCG PO HS, CAP 08/05/23 Calcium Carbonate (Calcium) 600 Mg Calcium (1500 Mg) Tablet, 600 MG PO HS, TAB 08/05/23 Pravastatin Sodium (Pravastatin Sodium) 20 Mg Tablet, 20 MG PO HS, TAB 08/05/23 Cyanocobalamin (Vitamin B-12) (Vitamin B-12) 1,000 Mcg Capsule, 1000 MCG PO DAILY, CAP 08/05/23 Vit B Cmplx No3/FA/C/Biot/Zinc (Nephplex Rx Tablet) 1 Mg-60 Mg-300 Mcg-12.5 Mg Tablet, 1 EACH PO DAILY, TAB 08/05/23 Clopidogrel Bisulfate (Clopidogrel) 75 Mg Tablet, 75 MG PO DAILY, TAB 08/05/23 Telmisartan/Hydrochlorothiazid (Telmisartan-Hctz 80-12.5 mg Tb) 80 Mg-12.5 Mg Tablet, 1 EACH PO BID, TAB 08/05/23 Montelukast Sodium (Singulair 10Mg) 10 Mg Tab, 10 MG PO HS, TAB 03/01/15 Past Medical History Past Medical History: Dementia, High Cholesterol, Hypertension, Hypothyroid Additional Past Medical Hx: Obesity.ABD MASS Surgical History: Hysterectomy, Other Surgical History Other: ABD SX (TUMOR REMOVAL). Social History: Negative, Lives with family History: Not Applicable Review of System Dictation Constitutional-no chills, weight loss/gain, fever. Eyes-no injury, pain, redness and discharge ENT-no injury, pain, swelling Cardiovascular no chest pain, palpitations, edema Respiratory no shortness of breath, cough, wheezing Abdomen/GI- no diarrhea, constipation, vomiting. positive for nausea and abdominal pain Back no injury and pain Genitourinary no injury, bleeding and discharge Musculoskeletal/extremities no injury, deformity Skin no rash, discoloration Neuro-no numbness, tingling, seizures, tremors. positive for generalized weakness and headache Psych-no suicidal ideation, homicidal ideation, hallucinations, depression, anxiety, memory loss Initial Vital Sign VS Vital Signs Date Time Temp Pulse Resp B/P (MAP) Pulse Ox O2 Delivery O2 Flow Rate FiO2 08/05/24 09:52 97.9 70 16 190/82 0 Room Air 0 08/05/24 10:05 21 Physical Exam Dictation General-patient is awake alert and oriented Head/neck-normocephalic, atraumatic Eyes-PERRL, EOMI, vision at baseline Neck-trachea midline, supple, no nuchal rigidity Cardiovascular-RRR, normal S1/S2, no MRG is, no JVD Respiratory-no distress, wheezing, rales, rhonchi Abdomen-no tenderness, guarding, soft, nondistended Skin warm, dry, normal turgor, no rash Musculoskeletal/extremities pulses equal, no cyanosis Neuro-COA X 4, GCS 15, strength 5/5, CN 2-12 intact Psych-normal behavior, mood and affect normal Results (Laboratory/Radiology) Laboratory/Radiology EKG Comment: EKG obtained 08-05-2024 at 10:07:53 Sinus rhythm Rate [address] elevations or depressions ED Course ED Course Medical Decision Making [facility] [place] MDM INITIAL IMPRESSION Initial history and physical concerning for dehydration, uncontrolled hypertension Contributing medical problems: HTN, dementia I have reviewed the triage nursing notes and vital signs. Initial plan: Laboratory evaluation, FOBT, UA, EKG. swabs DATA REVIEW I have reviewed additional NN, repeat VS, and monitoring where indicated. Heart rate, blood pressure, and O2 saturation are acceptable. ED COURSE Interventions: Fluids, Blood pressure management Reassessment: Feeling better DISPOSITION Final diagnostic impression: Mild dehydration, hypertension I discussed my findings, clinical impression and treatment recommendations with the patient. My final plan for disposition was made based upon -mild risk of complications and potential morbidity of the patient's condition. -Discussion with the patient regarding management options. Patient will be discharged home and advised to follow up with PCP as needed DX & DISP Disposition: Discharge Departure Impression: Primary Impression: Mild dehydration Additional Impression: Uncontrolled hypertension Condition: Stable Additional Instructions: Drink plenty of water and other clear liquids or drinks that contain electrolytes like Pedialyte or Rehydralyte. Get plenty of rest. Watch for signs of dehydration such as dry mouth, not much urine, dry eyes, and feeling very tired. Call your doctor if he has signs of dehydration, or if you feel dizzy, lightheaded, or like you might faint. FOLLOW-UP WITH PRIMARY CARE PROVIDER IN 1 TO 2 DAYS. TAKE MEDICATIONS D IRECTED HERE IN THE EMERGENCY ROOM. OKAY TO CONTINUE HOME MEDICATIONS UNLESS OTHERWISE DISCUSSED DURING YOUR VISIT IN THE EMERGENCY ROOM TODAY. RETURN TO YOUR NEAREST EMERGENCY ROOM IF SYMPTOMS WORSEN OR IF THERE IS NO IMPROVEMENT. CALL 911 IF YOU NEED IMMEDIATE ASSISTANCE. TAKE TYLENOL [id number] NEEDED AND IF NO CONTRAINDICATIONS ARE PRESENT. INCREASE ORAL HYDRATION. A WOUND CULTURE OR URINE CULTURE WAS ORDERED HERE IN THE EMERGENCY ROOM DEPARTMENT PLEASE FOLLOW-UP WITH PRIMARY CARE PROVIDER AND ADVISE THEM TO GET REPEAT PORTS FROM OUR FACILITY. IF YOU HAD ANY BEBETO WRAP/SPLINTS THAT WERE APPLIED HERE, PLEASE DO NOT REMOVE THEM UNTIL YOU SEE YOUR PRIMARY CARE OR SPECIALTY. Referrals: ALEXANDRIA BISWAS MD (PCP) Time of Disposition: 13:43 I have reviewed I have reviewed the case I was present and participated in the care of this patient alongside the resident physician. I have reviewed and personally made and improve the management plan that is documented in the note by myself or the resident physician. I acknowledge full responsibility for the patient's management plan. I have examined patient BRAYDON KAYE MD Aug 05, 2024 10:19 TAMARA LICEA MD Aug 10, 2024 16:36
[2024-08-05 10:25] LABS: BASOPHILS # (AUTO) 0.09 K/uL (0.00-0.20); BASOPHILS % (AUTO) 0.9 % (0.0-5.0); EOSINOPHILS # (AUTO) 0.11 K/uL (0.00-0.70); EOSINOPHILS % (AUTO) 1.1 % (0.0-8.0); HEMATOCRIT 33.3 % (36-48); IMMATURE GRANULOCYTE ABSOLUTE 0.03 K/uL (0-1); LYMPHOCYTES # (AUTO) 1.5 K/uL (1.0-4.8); LYMPHOCYTES % (AUTO) 15.5 % (21.0-51.0); MEAN CORPUSCULAR HEMOGLOBIN 30.6 pg (27.0-33.0); MEAN CORPUSCULAR HGB CONC 33.3 g/dL (32.0-36.0); MEAN CORPUSCULAR VOLUME 91.7 fL (79-99); MONOCYTES # (AUTO) 0.6 K/uL (0.1-1.0); NEUTROPHILS # (AUTO) 7.3 K/uL (1.8-7.7); NEUTROPHILS % (AUTO) 76.2 % (40.0-77.0); PLATELET COUNT (AUTO) 241 K/uL (130-400); RED BLOOD CELL COUNT(AUTO) 3.63 MIL/uL (4.00-5.50); RED CELL DISTRIBUTION WIDTH 13.2 % (11.0-15.5); WHITE BLOOD COUNT (AUTO) 9.6 K/uL (4.8-10.8)
[2024-08-05] MEDS: PANTOPrazole 40 MG/VIAL IVP ONE (10:28)
[2024-08-05] MEDS: ondanSETRON 4MG INJ IVP ONE (10:28)
[2024-08-05] MEDS: LACTATED RINGERS 1000ML 1,000 ML IV ONE (10:28)
[2024-08-05 10:37] LABS: CREATININE 1.4 mg/dL (0.5-1.0); POTASSIUM 4.2 mmol/L (3.5-5.1)
[2024-08-05 10:41] LABS: ALBUMIN 3.7 g/dL (3.5-5.0); BILIRUBIN,TOTAL 0.7 mg/dL (0.2-1.0); TOTAL PROTEIN, SERUM 7.8 g/dL (6.0-8.3)
[2024-08-05 10:59] LABS: RAPID GROUP A STREP negative (NEGATIVE)
[2024-08-05 11:00] LABS: SARS-CoV-2, RNA, NAAT NEGATIVE SARS CoV-2 (NEGATIVE)
[2024-08-05 11:09] LABS: INFLUENZA TYPE A Negative For Type A (NEGATIVE); INFLUENZA TYPE B Negative For Type B (NEGATIVE)
[2024-08-05] MEDS: cloNIDine HCL 0.1 MG TABLET PO STA (13:17)
--- NOTE | 2024-08-05 13:42 | NUR ---
PT REFUSED GUAC COLLECTION, DR LICEA AWARE
[2024-08-05 13:43] VITALS: BP 168/76; PULSE 70; RESP 16; TEMP 97.9; O2SAT 0
[2024-08-05 14:00] LABS: APPEARANCE,URINE CLEAR (CLEAR); BILIRUBIN,URINE NEGATIVE (NEGATIVE); COLOR,URINE LIGHT-YELLOW (YELLOW); GLUCOSE, URINE (UA) NEGATIVE (NEGATIVE); KETONES,URINE NEGATIVE (NEGATIVE); LEUKOCYTE ESTERASE ,URINE NEGATIVE Leu/uL (NEGATIVE); NITRATE,URINE NEGATIVE (NEGATIVE); OCCULT BLOOD,URINE NEGATIVE (NEGATIVE); PH,URINE 5.5 (5.0-8.0); PROTEIN,URINE NEGATIVE (NEGATIVE); UROBILINOGEN,URINE 0.2 mg/dL (0.2-1.0)
[2024-08-05 14:06] LABS: ADD UA MICROSCOPIC NO
[2024-08-06] MEDS ORDERED: PANT40TA54 PO (04:16)
== END 2024-08-05 14:02 | disposition home or self-care (01) ==
LOC: EDH 09:49
DX: E86.0 Dehydration (principal); I10 Essential (primary) hypertension; F03.90 Unspecified dementia, unspecified severity, without behavioral disturbance, psychotic disturbance, mood disturbance, and anxiety; E03.9 Hypothyroidism, unspecified; E66.9 Obesity, unspecified; E78.00 Pure hypercholesterolemia, unspecified; Z79.02 Long term (current) use of antithrombotics/antiplatelets; Z79.890 Hormone replacement therapy; Z79.899 Other long term (current) drug therapy; Z90.710 Acquired absence of both cervix and uterus; Z20.822 Contact with and (suspected) exposure to COVID-19
CPT/HCPCS: 99284; 96374; 96375; J7120; J2405; J2470; 36415; 80053; 81003; 82550; 83690; 84484; 85025; 87635; 87804; 87880; 93005

== ENCOUNTER 2024-08-06 02:11 | Emergency (ER) | payer MEDICARE, OTHER ==
[~2024-08-06] VITALS: Ht 162.6 cm; Wt 99.8 kg
[2024-08-06 02:37] LABS: BASOPHILS # (AUTO) 0.11 K/uL (0.00-0.20); BASOPHILS % (AUTO) 1.1 % (0.0-5.0); EOSINOPHILS # (AUTO) 0.22 K/uL (0.00-0.70); EOSINOPHILS % (AUTO) 2.2 % (0.0-8.0); HEMATOCRIT 29.3 % (36-48); IMMATURE GRANULOCYTE ABSOLUTE 0.04 K/uL (0-1); LYMPHOCYTES # (AUTO) 2.4 K/uL (1.0-4.8); LYMPHOCYTES % (AUTO) 23.7 % (21.0-51.0); MEAN CORPUSCULAR HEMOGLOBIN 30.3 pg (27.0-33.0); MEAN CORPUSCULAR HGB CONC 33.1 g/dL (32.0-36.0); MEAN CORPUSCULAR VOLUME 91.6 fL (79-99); MONOCYTES # (AUTO) 0.8 K/uL (0.1-1.0); MONOCYTES % (AUTO) 7.7 % (3.0-13.0); NEUTROPHILS # (AUTO) 6.6 K/uL (1.8-7.7); NEUTROPHILS % (AUTO) 64.9 % (40.0-77.0); PLATELET COUNT (AUTO) 239 K/uL (130-400); RED CELL DISTRIBUTION WIDTH 13.3 % (11.0-15.5); WHITE BLOOD COUNT (AUTO) 10.2 K/uL (4.8-10.8)
--- NOTE | 2024-08-06 02:42 | ERN ---
ED Note History of Present Illness Stated Complaint: INTERMITTENT ABD PAIN X 2-3 WEEKS Chief Complaint: Abdominal Pain Time Seen by MD: 02:17 Dictation: Patient is a 84-year-old female with past medical history of hypercholesterolemia, hypertension, hypothyroidism, dementia who presented to the emergency department complaining of abdominal pain, stated that she woke up in the middle of night feeling severe pain in the lower abdomen. Patient denies fever, chills, nausea, vomiting, diarrhea. She denies urinary symptoms. Allergies: Coded Allergies: latex (Unverified Allergy, Mild, ITCHING, 09/04/18) No Known Drug Allergies (Verified Allergy, Unknown, 01/25/14) Home Meds Active Scripts Levothyroxine Sodium (Synthroid 100 Mcg Tab) 100 Mcg Tablet, 100 MCG PO DAILY@0630 for 30 Days, #30 TAB Prov:ROSA ELENA VILLAFANA MAINTENANCE MECHANIC 08/02/24 Lactulose (Lactulose) 20 Gram/30 Ml Solution, 30 ML PO HSPRN PRN for CONSTIPATION, #200 ML 0 Refills Prov:SYLVAIN ORTEGA MAINTENANCE MECHANIC 07/29/24 Reported Medications Donepezil HCl (Donepezil HCl) 10 Mg Tablet, 1 TAB PO DAILY 07/31/24 Cholecalciferol (Vitamin D3) (Vitamin D3) 25 Mcg (1000 Unit) Capsule, 25 MCG PO HS, CAP 08/05/23 Calcium Carbonate (Calcium) 600 Mg Calcium (1500 Mg) Tablet, 600 MG PO HS, TAB 08/05/23 Pravastatin Sodium (Pravastatin Sodium) 20 Mg Tablet, 20 MG PO HS, TAB 08/05/23 Cyanocobalamin (Vitamin B-12) (Vitamin B-12) 1,000 Mcg Capsule, 1000 MCG PO DAILY, CAP 08/05/23 Vit B Cmplx No3/FA/C/Biot/Zinc (Nephplex Rx Tablet) 1 Mg-60 Mg-300 Mcg-12.5 Mg Tablet, 1 EACH PO DAILY, TAB 08/05/23 Clopidogrel Bisulfate (Clopidogrel) 75 Mg Tablet, 75 MG PO DAILY, TAB 08/05/23 Telmisartan/Hydrochlorothiazid (Telmisartan-Hctz 80-12.5 mg Tb) 80 Mg-12.5 Mg Tablet, 1 EACH PO BID, TAB 08/05/23 Montelukast Sodium (Singulair 10Mg) 10 Mg Tab, 10 MG PO HS, TAB 03/01/15 Discontinued Reported Medications Levothyroxine Sodium (Levothyroxine) 100 Mcg Capsule, 50 MCG PO AM, CAP 12/17/22 Dipyridamole (Persantine) 25 Mg Tab, 50 MG PO HS, TAB 08/05/23 Esomeprazole Magnesium (Esomeprazole Magnesium) 40 Mg Capsule.dr, 40 MG PO DAILY, CAP 08/05/23 Carvedilol (Carvedilol) 25 Mg Tablet, 25 MG PO BID, TAB 09/04/18 Discontinued Scripts Ibuprofen (Ibuprofen) 600 Mg Tablet, 600 MG PO Q6H PRN for PAIN, #30 TAB Prov:EMILY SWANSON MD 09/02/23 Methocarbamol (Robaxin) 750 Mg Tab, 750 MG PO TID, #30 TAB Prov:EMILY SWANSON MD 09/02/23 Past Medical History Past Medical History: Dementia, Hypertension Additional Past Medical Hx: Obesity.ABD MASS Surgical History: Unknown Surgical History Other: ABD SX (TUMOR REMOVAL). Social History: Negative, Lives with family History: Not Applicable Review of System Dictation NEGATIVE EXCEPT PER HPI Constitutional: Negative for fever,chills, and weight loss Eyes: Negative for injury, pain,redness, and discharge ENT: Negative for injury,pain or swelling Cardiovascular: denies chest pain, palpitations, and edema Respiratory: Negative for shortness of breath, cough, and wheezing, Abdomen/GI: Abdominal pain reported Back: Negative for injury and pain : Negative for injury, bleeding and discharge MS/Extremity: Negative for injury and deformity Skin: Negative for rash, and discoloration Neuro: Negative for headache, weakness, numbness, tingling, and seizure Psych: Negative for suicide ideation, homicidal ideation, and hallucinations Initial Vital Sign VS Vital Signs Date Time Temp Pulse Resp B/P (MAP) Pulse Ox O2 Delivery O2 Flow Rate FiO2 08/06/24 02:14 97.5 65 17 130/60 08/06/24 02:44 98 Room Air* 0 21 Physical Exam Dictation General: awake, alert, NAD Head/Face: Normocephalic, atraumatic Eyes: PERRL, EOMI, vision at baseline ENT: oral cavity clear, TMs clear, no signs of infection Neck: Trachea midline, supple, no nuchal rigidity Cardiovascular: RRR, normal S1/S2, No MRGs, no JVD Respiratory: CTAB, no respiratory distress, No rales or wheezes Abdomen: Soft , no tender Skin: Warm, dry, normal turgor, no rash MS/Extremity: Pulses equal, no cyanosis, neurovascular intact, FROM Neuro: COAx4, GCS 15, strength 5/5, CN 2-12 intact, normal cerebellar exam, normal gait, Psych: Normal behavior, mood, and affect normal Results (Laboratory/Radiology) Laboratory/Radiology Laboratory Tests Test 08/06/24 02:29 08/06/24 03:50 White Blood Count 10.2 K/uL (4.8-10.8) Red Blood Count 3.20 MIL/uL (4.00-5.50) L Hemoglobin 9.7 g/dL (12.0-16.0) L Hematocrit 29.3 % (36-48) L Mean Corpuscular Volume 91.6 fL (79-99) Mean Corpuscular Hemoglobin 30.3 pg (27.0-33.0) Mean Corpuscular Hemoglobin Concent 33.1 g/dL (32.0-36.0) Red Cell Distribution Width 13.3 % (11.0-15.5) Platelet Count 239 K/uL (130-400) Mean Platelet Volume 10.2 fL (7.5-10.5) Immature Granulocyte % (Auto) 0.4 % (0-1) Neutrophils (%) (Auto) 64.9 % (40.0-77.0) Lymphocytes (%) (Auto) 23.7 % (21.0-51.0) Monocytes (%) (Auto) 7.7 % (3.0-13.0) Eosinophils (%) (Auto) 2.2 % (0.0-8.0) Basophils (%) (Auto) 1.1 % (0.0-5.0) Neutrophils # (Auto) 6.6 K/uL (1.8-7.7) Lymphocytes # (Auto) 2.4 K/uL (1.0-4.8) Monocytes # (Auto) 0.8 K/uL (0.1-1.0) Eosinophils # (Auto) 0.22 K/uL (0.00-0.70) Basophils # (Auto) 0.11 K/uL (0.00-0.20) Absolute Immature Granulocyte (auto 0.04 K/uL (0-1) Nucleated Red Blood Cells 0.0 % (0.0-0.19) Sodium Level 137 mmol/L (136-145) Potassium Level 4.3 mmol/L (3.5-5.1) Chloride Level 105 mmol/L (101-111) Carbon Dioxide Level 25 mmol/L (21-32) Blood Urea Nitrogen 23 mg/dL (7-18) H Creatinine 1.6 mg/dL (0.5-1.0) H Glomerular Filtration Rate Calc 32 mL/min (>90) Random Glucose 100 mg/dL (70-105) Total Calcium 8.4 mg/dL (8.5-10.1) L Total Bilirubin 0.5 mg/dL (0.2-1.0) # Aspartate Amino Transf (AST/SGOT) 30 U/L (10-37) Alanine Aminotransferase (ALT/SGPT) 20 U/L (12-78) # Alkaline Phosphatase 64 U/L (50-136) Total Protein 6.7 g/dL (6.0-8.3) Albumin 3.2 g/dL (3.5-5.0) L Urine Color YELLOW (YELLOW) Urine Appearance CLEAR (CLEAR) Urine pH 5.0 (5.0-8.0) Urine Specific [place] 1.007 (1.001-1.031) Urine Protein NEGATIVE mg/dL (NEGATIVE) Urine Glucose (UA) NEGATIVE mg/dL (NEGATIVE) Urine Ketones NEGATIVE mg/dL (NEGATIVE) Urine Occult Blood NEGATIVE (NEGATIVE) Urine Nitrate NEGATIVE (NEGATIVE) Urine Bilirubin NEGATIVE mg/dL (NEGATIVE) Urine Urobilinogen 0.2 mg/dL (0.2-1.0) Urine Leukocyte Esterase NEGATIVE Marcel/uL ED Course ED Course Orders Procedure Category Date Status Time Comprehensive LAB 08/06/24 Complete Metabolic Panel 02:28 Cbc With Differential LAB 08/06/24 Complete 02:28 Urinalysis Profile LAB 08/06/24 Complete 02:28 Morphine 2mg Syg PHA 08/06/24 Complete (Morphine 2mg Syg) 02:30 Mag/Alum/Simeth 30ml PHA 08/06/24 Complete (Maalox Plus 30ml) 03:00 Current Medications Medications (Trade) Dose Ordered Sig/True Route PRN Reason Start Time Stop Time Status Last Admin Dose Admin Al Hydroxide/Mg Hydroxide (MAALox PLUS 30ML) 30 ml ONCE ONCE PO 08/06/24 03:00 08/06/24 03:01 DC 08/06/24 02:48 Morphine Sulfate (morPHINE 2MG SYG) 2 mg ONCE ONCE IVP 08/06/24 02:30 08/06/24 02:31 DC 08/06/24 02:48 Vital Signs Date Time Temp Pulse Resp B/P (MAP) Pulse Ox O2 Delivery O2 Flow Rate FiO2 08/06/24 03:54 75 17 113/47 98 Room Air* 0 21 08/06/24 02:44 98.2 69 18 97/71 98 Room Air* 0 21 08/06/24 02:14 97.5 65 17 130/60 Medical Decision Making MDM Patient is a 84-year-old female with past medical history of hypercholesterolemia, hypertension, hypothyroidism, dementia who presented to the emergency department complaining of abdominal pain, stated that she woke up in the middle of night feeling severe pain in the lower abdomen. Patient denies fever, chills, nausea, vomiting, diarrhea. She denies urinary symptoms CBC, BNP, UA ordered Rationale: UTI, gastritis, peptic ulcer, dementia Laboratory workup including urinalysis was within normal limits. Patient has had severe trips to the ER in the last month. I recommended to follow up with the GI as outpatient for further evaluation. Patient has mentioned, was at the bedside recommendation was discussed with both . DX & DISP Disposition: Discharge Departure Impression: Primary Impression: Constipation Additional Impressions: Gastritis, Peptic duodenitis, Dementia Condition: Stable Scripts Pantoprazole Sodium (Pantoprazole Sodium) 40 Mg Tablet.dr 1 TAB PO DAILY for 30 Days, #30 TAB 0 Refills Prov: CLAUDIA GONZALES MD 08/06/24 Additional Instructions: RETURN TO ER FOR ANY ACUTE OR WORSENING SYMPTOMS. FOLLOW-UP IN 1-2 DAYS WITH PRIMARY PROVIDER FOR RECHECK OF TODAY'S SYMPTOMS. Referrals: ALEXANDRIA BISWAS MD (PCP) Time of Disposition: 04:16 CLAUDIA GONZALES MD Aug 06, 2024 02:42
[2024-08-06 02:44] VITALS: TEMP 98.2
[2024-08-06 02:46] LABS: CREATININE 1.6 mg/dL (0.5-1.0); POTASSIUM 4.3 mmol/L (3.5-5.1)
[2024-08-06] MEDS: morPHINE 2 MG SYG IVP ONE (02:48)
[2024-08-06] MEDS: MAG/ALUM/SIMETH 30 ML UDCUP PO ONE (02:48)
[2024-08-06 02:51] LABS: ALBUMIN 3.2 g/dL (3.5-5.0); BILIRUBIN,TOTAL 0.5 mg/dL (0.2-1.0); TOTAL PROTEIN, SERUM 6.7 g/dL (6.0-8.3)
--- NOTE | 2024-08-06 03:00 | NUR ---
RECIEVED REPORT AT THIS TIME; PT CARE ASSUMED
[2024-08-06 03:54] VITALS: BP 113/47; PULSE 75; RESP 17; O2SAT 98
[2024-08-06 04:01] LABS: APPEARANCE,URINE CLEAR (CLEAR); BILIRUBIN,URINE NEGATIVE (NEGATIVE); GLUCOSE, URINE (UA) NEGATIVE (NEGATIVE); KETONES,URINE NEGATIVE (NEGATIVE); LEUKOCYTE ESTERASE ,URINE NEGATIVE Leu/uL (NEGATIVE); NITRATE,URINE NEGATIVE (NEGATIVE); OCCULT BLOOD,URINE NEGATIVE (NEGATIVE); PROTEIN,URINE NEGATIVE (NEGATIVE); UROBILINOGEN,URINE 0.2 mg/dL (0.2-1.0)
[2024-08-06 04:06] LABS: ADD UA MICROSCOPIC NO; COLOR,URINE YELLOW (YELLOW)
[2024-08-06] MEDS ORDERED: PANT40TA54 PO (04:16)
== END 2024-08-06 04:40 | disposition home or self-care (01) ==
LOC: EDH 02:11
DX: K59.00 Constipation, unspecified (principal); K29.70 Gastritis, unspecified, without bleeding; K29.80 Duodenitis without bleeding; F03.90 Unspecified dementia, unspecified severity, without behavioral disturbance, psychotic disturbance, mood disturbance, and anxiety; E66.9 Obesity, unspecified; I10 Essential (primary) hypertension; Z79.02 Long term (current) use of antithrombotics/antiplatelets; Z79.890 Hormone replacement therapy; Z79.899 Other long term (current) drug therapy
CPT/HCPCS: 96374; 99283; J2270; 36415; 80053; 85025

== ENCOUNTER 2024-08-29 14:39 | Emergency (ER) | payer MEDICARE, OTHER ==
[~2024-08-29] VITALS: Ht 170.2 cm; Wt 99.8 kg
[~2024-08-29 14:39] MED LIST changes: +PANT40TA54 PO
--- NOTE | 2024-08-29 14:51 | ERN ---
General Chief Complaint: Syncope Stated Complaint: SYNCOPE Time Seen by MD: 14:43 History of Present Illness Initial Comments 84-year-old female brought in by port as well EMS for a syncopal episode. Patient reports that she tried a lidocaine patch or lower back for the 1st time. After she put this own she felt success palpitations and felt woozy. She had a near syncopal episode according to the . She was lightheaded and fainted. She reports that her symptoms almost immediately resolves and now she feels okay. EMS found her with stable vital signs. Normal neurologic examination. She reports that she has otherwise been in her normal state of health. Allergies: Coded Allergies: latex (Unverified Allergy, Mild, ITCHING, 09/04/18) No Known Drug Allergies (Verified Allergy, Unknown, 01/25/14) Home Meds Active Scripts Pantoprazole Sodium (Pantoprazole Sodium) 40 Mg Tablet.dr, 1 TAB PO DAILY for 30 Days, #30 TAB 0 Refills Prov:CLAUDIA GONZALES MD 08/06/24 Levothyroxine Sodium (Synthroid 100 Mcg Tab) 100 Mcg Tablet, 100 MCG PO DAILY@0630 for 30 Days, #30 TAB Prov:ROSA ELENA VILLAFANA NP 08/02/24 Lactulose (Lactulose) 20 Gram/30 Ml Solution, 30 ML PO HSPRN PRN for CON STIPATION, #200 ML 0 Refills Prov:SYLVAIN ORTEGA NP 07/29/24 Reported Medications Donepezil HCl (Donepezil HCl) 10 Mg Tablet, 1 TAB PO DAILY 07/31/24 Cholecalciferol (Vitamin D3) (Vitamin D3) 25 Mcg (1000 Unit) Capsule, 25 MCG PO HS, CAP 08/05/23 Calcium Carbonate (Calcium) 600 Mg Calcium (1500 Mg) Tablet, 600 MG PO HS, TAB 08/05/23 Pravastatin Sodium (Pravastatin Sodium) 20 Mg Tablet, 20 MG PO HS, TAB 08/05/23 Cyanocobalamin (Vitamin B-12) (Vitamin B-12) 1,000 Mcg Capsule, 1000 MCG PO DAILY, CAP 08/05/23 Vit B Cmplx No3/FA/C/Biot/Zinc (Nephplex Rx Tablet) 1 Mg-60 Mg-300 Mcg-12.5 Mg Tablet, 1 EACH PO DAILY, TAB 08/05/23 Clopidogrel Bisulfate (Clopidogrel) 75 Mg Tablet, 75 MG PO DAILY, TAB 08/05/23 Telmisartan/Hydrochlorothiazid (Telmisartan-Hctz 80-12.5 mg Tb) 80 Mg-12.5 Mg Tablet, 1 EACH PO BID, TAB 08/05/23 Montelukast Sodium (Singulair 10Mg) 10 Mg Tab, 10 MG PO HS, TAB 03/01/15 Past Medical History Past Medical History: COPD, Hypertension Medical History Other: OBESITY Past Surgical History: Hysterectomy, Other Surgical History Other: R BREAST MASS REMOVAL Social History Social History: Negative, Lives with family Female( History) History: Not Applicable ROS Dictation CONSTITUTIONAL: No chills, no fever, no weakness, no diaphoresis, no malaise. HEAD/FACE: No signs of trauma. EENT: No eye pain, no blurred vision, no tearing, no double vision, no ear pain, no ear discharge, no nose pain, no nasal congestion, no throat pain, no throat swelling, no mouth pain. RESPIRATORY: No cough, no orthopnea, no SOB, no stridor, no wheezing. CARDIOVASCULAR: Syncopal episode GASTROINTESTINAL/ABDOMINAL: No abdominal pain, no constipation, no diarrhea, no nausea, no vomiting. GENITOURINARY: No abnormal discharge, no dysuria, no frequent urination, no hematuria. No complaints of pain in the genitals. MUSCULOSKELETAL: No back pain, no gout, no joint pain, no joint swelling, no muscle pain, no muscle stiffness, no neck pain. INTEGUMENTARY: No change in color, no change in hair/nails, no dryness, no lesion, no lumps, no rash. NEUROLOGICAL/PSYCH: Slight headache HEMATOLOGIC/LYMPHATIC: Not anemic, no history of blood clots, no apparent bleeding, no bruising, glands not swollen. All Systems Negative, Except as Noted. Physical Exam Physical Exam Dictation VITAL SIGNS: Reviewed. GENERAL APPEARANCE: Alert, oriented x3, no acute distress, obese. HEAD AND FACE: Non-traumatic. EYES: PERRL, pink conjunctivas, eyelid no trauma, anterior chamber clear. EARS: Pinnas intact and no signs of trauma or erythema. Ear canals clear and no discharge. TMs no erythema. NOSE: No discharge, no bleeding. OROPHARYNX: Mouth normal, teeth no caries, tongue pink. Pharynx clear, no erythema. Tonsils no exudates, no abscesses noted. Mucous membrane moist. NECK: Supple, non-tender, no thyromegaly, no masses, no JVD, no bruits. BREAST: Deferred. CHEST: No tenderness, no crepitus, no paradoxical movement, no retractions. LUNGS: Clear, well-ventilated, symmetric, no rales, no wheezing, no rhonchi, no stridor, good breath sounds bilaterally. HEART: Regular rate, regular rhythm, no murmur, no gallops. VASCULAR: No peripheral edema. ABDOMEN: Soft, positive bowel sounds, nondistended, no guarding, nontender, no rebound, no masses no hepatomegaly, no splenomegaly, no Grant's sign, no hernias. RECTAL: Deferred. GENITAL: Deferred. NEUROLOGICAL: Normal speech, gross motor function intact, gross sensory function intact. MUSCULOSKELETAL: Neck nontender, full range of motion, back nontender, full range of motion. EXTREMITIES: Nontender, full range of motion. SKIN: Color pink, dry, no turgor, no rash, no lacerations, no abrasions, no contusions. LYMPHATICS: Deferred. Results Laboratory and Microbiology Lab and Micro Result Laboratory Tests Test 08/29/24 16:02 White Blood Count 5.6 K/uL (4.8-10.8) Red Blood Count 3.39 MIL/uL (4.00-5.50) L Hemoglobin 10.2 g/dL (12.0-16.0) L Hematocrit 31.1 % (36-48) L Mean Corpuscular Volume 91.7 fL (79-99) Mean Corpuscular Hemoglobin 30.1 pg (27.0-33.0) Mean Corpuscular Hemoglobin Concent 32.8 g/dL (32.0-36.0) Red Cell Distribution Width 13.2 % (11.0-15.5) Platelet Count 225 K/uL (130-400) Mean Platelet Volume 10.0 fL (7.5-10.5) Immature Granulocyte % (Auto) 0.5 % (0-1) Neutrophils (%) (Auto) 56.9 % (40.0-77.0) Lymphocytes (%) (Auto) 25.4 % (21.0-51.0) Monocytes (%) (Auto) 10.8 % (3.0-13.0) Eosinophils (%) (Auto) 4.8 % (0.0-8.0) Basophils (%) (Auto) 1.6 % (0.0-5.0) Neutrophils # (Auto) 3.2 K/uL (1.8-7.7) Lymphocytes # (Auto) 1.4 K/uL (1.0-4.8) Monocytes # (Auto) 0.6 K/uL (0.1-1.0) Eosinophils # (Auto) 0.27 K/uL (0.00-0.70) Basophils # (Auto) 0.09 K/uL (0.00-0.20) Absolute Immature Granulocyte (auto 0.03 K/uL (0-1) Nucleated Red Blood Cells 0.0 % (0.0-0.19) Sodium Level 139 mmol/L (136-145) Potassium Level 4.4 mmol/L (3.5-5.1) Chloride Level 103 mmol/L (101-111) Carbon Dioxide Level 27 mmol/L (21-32) Blood Urea Nitrogen 26 mg/dL (7-18) H Creatinine 1.4 mg/dL (0.5-1.0) H Glomerular Filtration Rate Calc 37 mL/min (>90) Random Glucose 101 mg/dL (70-105) Total Calcium 9.3 mg/dL (8.5-10.1) MDM CC: Syncopal episode, Mild headache Historian: Patient Comorbidities: advanced age, hypertension, CKD, DLD, HTN, back pain Limitations by social determinants of health: None Differential diagnosis: Head injury, brain bleed, syncopal episode due to arrhythmia, cardiac disease, other. External chart review: Patient was had multiple ED visits and hospitalizations over the last six weeks here in [facility]. She had an admission for dehydration. She had an admission for a fall. She left [facility] the last time on 08/08/2024. I reviewed the note by Dr. Estrella. She was admitted for back pain. It was recommended that she goes to a nursing facility or long-term care for rehabilitation, but she left because she did not want to at the time. Vital signs: Stable, remained stable in the ER. Labs (Independently ordered and interpreted by me ): No leukocytosis. Mild normocytic anemia hemoglobin of 10.2. Chemistry panel shows a creatinine 1.4 and a BUN at 26 otherwise unremarkable. external chart review: I reviewed the patient's admission from July of 2024. I reviewed her labs. She appears to have CKD at her current creatinine is at baseline. She also appears to have chronic anemia, baseline today. EKG: Sinus rhythm rate of 62, axis deviation, good R-wave progression, intervals are stable. No STEMI. Independently interpreted by me. CXR ( independently ordered and interpreted by me): No cardiomegaly pleural effusions or focal infiltrates noted. CT head without contrast ( independently ordered and interpreted by me ): Chronic changes but no acute bleeds or abnormalities noted. Treatment in the ED: 1 L normal saline. For based on the patient's advanced age, I did offer the patient admission for observation and further cardiac studies, but the patient reports that. She prefers to go home. 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 She will monitor for further symptoms return to the emergency department if they present themselves. I did run the patient through the [place] syncope rule and she is low risk. REASON: headache, syncope ORDERING PHYSICIAN: PHILLIP YADAV DO PROCEDURE: HEAD WO - CT HEAD/BRAIN W/O CONTRAST CT HEAD WITHOUT CONTRAST INDICATION: Headache and syncope TECHNIQUE: Noncontrast axial helical CT images from the vertex through the skull base using 5 mm slice thickness without contrast material. Coronal and sagittal reconstructions were also included. Dose reduction techniques was used using integrated, automated and adaptive dose reduction exposure control. CT was performed with one or more of the following dose reduction techniques: Automated exposure control, adjustment of the mA and/or kV according to patient size, or use of iterative reconstruction technique. COMPARISON: None FINDINGS: Scattered and coalescent subcortical and periventricular white matter low attenuating areas likely represent residual of chronic small vessel arteriopathy and/or remote vascular insult. Generalized mild cerebral cortical atrophy is present.. No evidence for abnormal extra-axial fluid collections or masses. The ventricles and sulci are normal in size and configuration. No evidence for intracranial parenchymal, epidural, or subdural hemorrhage, mass effect or midline shift. The tse-white matter differentiation is well preserved. No secondary evidence to suggest acute ischemia. Mild calcific plaque is present along the chaudhary of the cavernous segments of both internal carotid arteries. The brainstem and cerebellum appear normal. The visualized orbits appear unremarkable. The visible paranasal sinuses and mastoid air cells are clear. The calvarium appears normal. IMPRESSION: Chronic white matter ischemic changes, mild brain atrophy, and arteriosclerotic disease as described, without acute component. REASON: SYNCOPE ORDERING PHYSICIAN: PHILLIP YADAV DO PROCEDURE: CXR1VW - CHEST 1VW CHEST 1VW CLINICAL HISTORY: SYNCOPE COMPARISON: 08/08/2024 TECHNIQUE: Single view of the chest was obtained. FINDINGS: Lungs are clear. The cardiac size and mediastinum are unremarkable. The bony structures are within normal limits. IMPRESSION: No acute cardiopulmonary process identified. ED Course Orders Procedure Category Date Status Time Cbc With Differential LAB 08/29/24 Complete 14:43 Chest 1vw RAD 08/29/24 Resulted 14:43 Ct Head/Brain W/O CT 08/29/24 Resulted Contrast 14:43 12 Lead Ekg Tracing- EKG 08/29/24 Resulted Technical 14:43 0.9%Nacl 1000ml (Ns PHA 08/29/24 Complete 1000ml) 15:00 Basic Metabolic Panel LAB 08/29/24 Complete 14:43 Current Medications Medications (Trade) Dose Ordered Sig/True Route PRN Reason Start Time Stop Time Status Last Admin Dose Admin Sodium Chloride 1,000 ml @ 0 mls/hr ONCE ONCE IV 08/29/24 15:00 08/29/24 15:01 DC 08/29/24 15:07 Vital Signs Date Time Temp Pulse Resp B/P (MAP) Pulse Ox O2 Delivery O2 Flow Rate FiO2 08/29/24 15:29 75 14 130/69 98 Room Air* 0 21 08/29/24 14:41 98.1 66 20 174/77 98 Room Air 0 DX & DISP Disposition: Discharge Departure Impression: Primary Impression: Syncope and collapse Additional Impressions: CKD (chronic kidney disease), Normocytic anemia Condition: Stable Additional Instructions: As we discussed, there are no dangerous findings on your workup here today. Your EKG is at baseline. Your chest x-ray is normal. The CT scan of your brain is normal. Your lab work (CBC, BMP) is normal. Monitor for further episodes of dizziness, loss of consciousness, heart palpitations, or chest pains. Please immediately return to the emergency department if they develop. Otherwise, follow up with Dr. Mason or Dr. Christensen early next week. Referrals: ALEXANDRIA MASON MD (PCP) PHILLIP YADAV DO Aug 29, 2024 14:51
[2024-08-29] MEDS: 0.9%NACL 1000ML 1,000 ML IV ONE (15:07)
--- NOTE | 2024-08-29 15:59 | HMCIMG ---
CHEST 1VW CLINICAL HISTORY: SYNCOPE COMPARISON: 08/08/2024 TECHNIQUE: Single view of the chest was obtained. FINDINGS: Lungs are clear. The cardiac size and mediastinum are unremarkable. The bony structures are within normal limits. IMPRESSION: No acute cardiopulmonary process identified.
[2024-08-29 16:09] LABS: BASOPHILS # (AUTO) 0.09 K/uL (0.00-0.20); BASOPHILS % (AUTO) 1.6 % (0.0-5.0); EOSINOPHILS # (AUTO) 0.27 K/uL (0.00-0.70); EOSINOPHILS % (AUTO) 4.8 % (0.0-8.0); HEMATOCRIT 31.1 % (36-48); IMMATURE GRANULOCYTE ABSOLUTE 0.03 K/uL (0-1); LYMPHOCYTES # (AUTO) 1.4 K/uL (1.0-4.8); LYMPHOCYTES % (AUTO) 25.4 % (21.0-51.0); MEAN CORPUSCULAR HEMOGLOBIN 30.1 pg (27.0-33.0); MEAN CORPUSCULAR HGB CONC 32.8 g/dL (32.0-36.0); MEAN CORPUSCULAR VOLUME 91.7 fL (79-99); MONOCYTES # (AUTO) 0.6 K/uL (0.1-1.0); MONOCYTES % (AUTO) 10.8 % (3.0-13.0); NEUTROPHILS # (AUTO) 3.2 K/uL (1.8-7.7); NEUTROPHILS % (AUTO) 56.9 % (40.0-77.0); PLATELET COUNT (AUTO) 225 K/uL (130-400); RED BLOOD CELL COUNT(AUTO) 3.39 MIL/uL (4.00-5.50); RED CELL DISTRIBUTION WIDTH 13.2 % (11.0-15.5); WHITE BLOOD COUNT (AUTO) 5.6 K/uL (4.8-10.8)
[2024-08-29 16:16] LABS: CREATININE 1.4 mg/dL (0.5-1.0); POTASSIUM 4.4 mmol/L (3.5-5.1)
--- NOTE | 2024-08-29 16:16 | EKG ---
[facility] Test Date: 2024-08-29 Test Time: 14:51:17 Pat Name: JACE READ Department: ED Room: Gender: F [employer] Technician: [id number] : [id number] Requested By: PHILLIP YADAV Order Number: [id number] Reading MD: Shaheen Landrum Measurements Intervals [place] Rate: 62 P: 72 MS: 181 QRS: -17 QRSD: 78 T: 42 QT: 406 QTc: 412 Interpretive Statements Sinus rhythm Anterior infarct, old Compared to ECG 08/08/2024 02:33:23 No significant changes Electronically Signed On 08-29-2024 16:51:34 [employer] by Shaheen Landrum Please click the below link to view image of tracing.
--- NOTE | 2024-08-29 16:18 | HMCIMG ---
CT HEAD WITHOUT CONTRAST INDICATION: Headache and syncope TECHNIQUE: Noncontrast axial helical CT images from the vertex through the skull base using 5 mm slice thickness without contrast material. Coronal and sagittal reconstructions were also included. Dose reduction techniques was used using integrated, automated and adaptive dose reduction exposure control. CT was performed with one or more of the following dose reduction techniques: Automated exposure control, adjustment of the mA and/or kV according to patient size, or use of iterative reconstruction technique. COMPARISON: None FINDINGS: Scattered and coalescent subcortical and periventricular white matter low attenuating areas likely represent residual of chronic small vessel arteriopathy and/or remote vascular insult. Generalized mild cerebral cortical atrophy is present.. No evidence for abnormal extra-axial fluid collections or masses. The ventricles and sulci are normal in size and configuration. No evidence for intracranial parenchymal, epidural, or subdural hemorrhage, mass effect or midline shift. The tse-white matter differentiation is well preserved. No secondary evidence to suggest acute ischemia. Mild calcific plaque is present along the chaudhary of the cavernous segments of both internal carotid arteries. The brainstem and cerebellum appear normal. The visualized orbits appear unremarkable. The visible paranasal sinuses and mastoid air cells are clear. The calvarium appears normal. IMPRESSION: Chronic white matter ischemic changes, mild brain atrophy, and arteriosclerotic disease as described, without acute component.
[2024-08-29 17:11] VITALS: BP 134/75; PULSE 71; RESP 14; TEMP 97.8; O2SAT 97
== END 2024-08-29 17:15 | disposition home or self-care (01) ==
LOC: EDH 14:39
DX: R55 Syncope and collapse (principal); R42 Dizziness and giddiness; I12.9 Hypertensive chronic kidney disease with stage 1 through stage 4 chronic kidney disease, or unspecified chronic kidney disease; N18.9 Chronic kidney disease, unspecified; D63.1 Anemia in chronic kidney disease; E66.9 Obesity, unspecified; I25.2 Old myocardial infarction; J44.9 Chronic obstructive pulmonary disease, unspecified; Z79.02 Long term (current) use of antithrombotics/antiplatelets; Z79.890 Hormone replacement therapy; Z79.899 Other long term (current) drug therapy; Z90.710 Acquired absence of both cervix and uterus
CPT/HCPCS: 99285; 96360; 70450; 71045; 80048; 85025; 36415; 93005; J7030